=== PATIENT | male | born 1980 | race American Indian/Alaskan Native ===

== ENCOUNTER 2016-12-09 19:38 | Inpatient (IN) | payer OTHER ==
--- NOTE | 2016-12-09 20:15 | Emergency Department Report ---
HPI - General Chief Complaint: Dizziness - HPI HPI: Room 23 The patient is a 36-year-old female presenting with a chief complaint right upper extremity and right lower extremity tightness/numbness. Patient states that 30 minutes prior to arrival he began to feel dizzy and had tightness/ numbness in his right arm and right leg. The patient acknowledges that during this episode he had a brief period of being unresponsive and unaware of his surroundings. The patient states he was diagnosed by an orthopedic surgeon 45 days ago with a diagnosis of that begins with the letter "M" but he cannot remember the name. Location: Right upper extremity, right lower extremity Duration: Constant 30 minutes Quality: Tightness Severity: Moderate Modifying factors: [see above] Context: [see above] Mode of transportation: Driving ED Past Medical Hx - Past Medical History Previous Medical History?: Yes Additional medical history: muscular dystrophy - Surgical History Past Surgical History?: No - Social History Smoking Status: Never Smoker Substance Use Type: None - Medications Home Medications: Home Medications Medication Instructions Recorded Confirmed Last Taken Type No Known Home Medications [No 12/09/16 12/09/16 Unknown History Reported Home Medications] ED Review of Systems ROS: Stated complaint: RT LEG/RT ARM PAIN Other details as noted in HPI Physical Exam - Physical Exam Vital Signs: Vital Signs 12/09/16 19:44 Temperature 97.5 F L Pulse Rate 102 H Respiratory 16 Rate Blood Pressure 142/96 O2 Sat by Pulse 100 Oximetry ED Course Vital Signs 12/09/16 19:44 Temperature 97.5 F L Pulse Rate 102 H Respiratory 16 Rate Blood Pressure 142/96 O2 Sat by Pulse 100 Oximetry - Reevaluation(s) Reevaluation #1: 12/09/16 22:12 Patient has finally decided that he will stay and be admitted in the hospital - Consultations Consultation #1: 12/09/16 20:18 [facility] was called-I spoke with the on- call physician when turn spoke with the patient's orthopedic surgeon Dr. Nix acknowledges the patient was being worked up for myositis of unknown etiology secondary to elevated CPKs. The patient was reportedly referred to to local [place] truck driver however the patient never followed up ED Medical Decision Making - Lab Data Result diagrams: 12/09/16 20:07 12/09/16 20:07 Laboratory Tests 12/09/16 12/09/16 12/09/16 20:07 20:07 20:07 WBC 8.4 RBC 4.81 Hgb 14.8 Hct 44.9 MCV 93 MCH 31 MCHC 33 RDW 13.4 Plt Count 293 Lymph % (Auto) 18.0 [place] % (Auto) 6.5 Eos % (Auto) 0.4 Baso % (Auto) 0.5 Lymph # 1.5 [place] # 0.5 Eos # 0.0 Baso # 0.0 Seg Neutrophils % 74.6 H Seg Neutrophils # 6.3 PT 13.4 INR 0.97 APTT 31.0 Thrombin Time Sodium 141 Potassium 3.8 Chloride 100.3 Carbon Dioxide 26 Anion Gap 19 BUN 9 Creatinine 1.0 Estimated GFR > 60 BUN/Creatinine Ratio 9.00 Glucose 90 Calcium 9.0 Total Creatine Kinase CK-MB (CK-2) CK-MB (CK-2) Rel Index Troponin T < 0.010 12/09/16 12/09/16 20:07 20:07 WBC RBC Hgb Hct MCV MCH MCHC RDW Plt Count Lymph % (Auto) [place] % (Auto) Eos % (Auto) Baso % (Auto) Lymph # [place] # Eos # Baso # Seg Neutrophils % Seg Neutrophils # PT INR APTT Thrombin Time 17.2 Sodium Potassium Chloride Carbon Dioxide Anion Gap BUN Creatinine Estimated GFR BUN/Creatinine Ratio Glucose Calcium Total Creatine Kinase 181 H CK-MB (CK-2) 2.0 CK-MB (CK-2) Rel Index 1.1 Troponin T < 0.010 - EKG Data -: EKG Interpreted by Me EKG shows normal: sinus rhythm Rate: normal - EKG Data When compared to previous EKG there are: previous EKG unavailable Interpretation: normal EKG - Radiology Data Radiology results: report reviewed (CT head), image reviewed (CT head) CT head (read by radiologist)-normal examination - Differential Diagnosis rhabdomyolysis, polymyositis, CVA Critical care attestation.: If time is entered above; I have spent that time in minutes in the direct care of this critically ill patient, excluding procedure time. ED Disposition Clinical Impression: Numbness on right side, Episode of unresponsiveness Disposition: OP ADMIT IP TO THIS HOSP Is pt being admited?: Yes Does the pt Need Aspirin: Yes Condition: Fair Time of Disposition: 22:12 (hospitalist paged)
--- NOTE | 2016-12-09 20:29 | Cat Scan Report ---
FINAL REPORT PROCEDURE: CT HEAD/BRAIN WO CON TECHNIQUE: Computerized tomography of the head was performed without contrast material. HISTORY: neuro deficits \T\lt; 6hrs or sx present upon awakening COMPARISON: No prior studies are available for comparison. FINDINGS: Skull and scalp: Normal. Paranasal sinuses: Normal. Ventricles and subarachnoid spaces: Normal. Cerebrum: No evidence of hemorrhage, acute infarction or mass . Cerebellum and brainstem: No evidence of hemorrhage, acute infarction or mass. Vasculature: Normal. Comments: None. IMPRESSION: Normal Examination
[2016-12-09 20:46] LABS: Anion Gap 19 mmol/L; Blood Urea Nitrogen 9 mg/dL (9-20); Carbon Dioxide 26 mmol/L (22-30); Chloride 100.3 mmol/L (98-107); Glucose 90 mg/dL (75-100); Potassium 3.8 mmol/L (3.6-5.0); Sodium 141 mmol/L (137-145)
[2016-12-09 20:50] LABS: INR 0.97 (0.87-1.13)
[2016-12-09 20:51] LABS: Creatine Kinase 181 units/L (55-170)
[2016-12-09 20:52] LABS: Basophils % (Auto) 0.5 % (0.0-1.8); Eosinophils % (Auto) 0.4 % (0.0-4.3); Hematocrit 44.9 % (35.5-45.6); Hemoglobin 14.8 gm/dl (11.8-15.2); Mean Corpuscular HGB Conc 33 % (32-34); Mean Corpuscular Hemoglobin 31 pg (28-32); Mean Corpuscular Volume 93 fl (84-94); Platelet Count 293 K/mm3 (140-440); Red Blood Count 4.81 M/mm3 (3.65-5.03); Red Cell Distribution Width 13.4 % (13.2-15.2); White Blood Count 8.4 K/mm3 (4.5-11.0)
[2016-12-09] MEDS ORDERED: ASPIRIN PO ONE (21:13)
[2016-12-09] MEDS ORDERED: TYLENOL PO PRN (23:32)
[2016-12-09] MEDS ORDERED: ZOFRAN IV PRN (23:33)
[2016-12-10 01:13] LABS: Creatine Kinase MB 1.5 ng/mL (0.0-4.0)
[2016-12-10 01:14] LABS: Creatine Kinase 159 units/L (55-170)
[2016-12-10 07:12] LABS: Creatine Kinase MB 1.4 ng/mL (0.0-4.0)
[2016-12-10 07:14] LABS: Creatine Kinase 120 units/L (55-170)
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
[2016-12-10] MEDS ORDERED: HEPARIN SUB-Q SCH (10:00)
[2016-12-10] MEDS ORDERED: DELTASONE PO SCH (10:00)
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
[2016-12-10] MEDS: FLEXERIL PO SCH ×2 (12:52→13:24)
--- NOTE | 2016-12-10 12:58 | Magnetic Resonance Report ---
MRI BRAIN WITHOUT CONTRAST: 12/10/16 CLINICAL: TIA. TECHNIQUE: Axial diffusion, T1, T2, FLAIR, gradient echo T2*, and sagittal T1 sequences on a 1.5 Marlee magnet. FINDINGS: Normal ventricles and sulci. No restricted diffusion. Multifocal bilateral white matter hyperintensities on FLAIR and T2. The most prominent is in the right frontal lobe and measures 4 mm. No other abnormal signal. No mass or mass effect. No hemorrhage, edema or extra-axial collection. Normal pituitary and optic chiasm. The brainstem and cerebellum are normal. Intact vascular flow voids. Normal sinuses. The orbits, and soft tissues are normal. Normal calvarium and skull base. IMPRESSION: No evidence of acute/subacute infarct or hemorrhage. Multifocal bilateral nonspecific white matter hyperintensities on FLAIR and T2.
[2016-12-10 13:57] VITALS: BP 131/76
--- NOTE | 2016-12-10 15:12 | Consultation ---
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 and leaves no rsidual weakness Medications and Allergies Allergies Allergy/AdvReac Type Severity Reaction Status Date / Time No Known Allergies Allergy Verified 12/09/16 19:43 Home Medications Medication Instructions Recorded Confirmed Last Taken Type Cyclobenzaprine 10 mg PO TID #90 12/10/16 Unknown Rx predniSONE 10 mg PO DAILY #30 12/10/16 Unknown Rx Active Meds: Active Medications Acetaminophen (Tylenol) 650 mg PO Q4H PRN PRN Reason: For Pain/Fever/Headache Aspirin (Baby Aspirin) 81 mg PO QDAY [facility] Cyclobenzaprine HCl (Flexeril) 10 mg PO TID [facility] Last Admin: 12/10/16 13:24 Dose: Not Given Ondansetron HCl (Zofran) 4 mg IV Q8H PRN PRN Reason: Nausea And Vomiting Prednisone (Deltasone) 10 mg PO QDAY [facility] Last Admin: 12/10/16 12:53 Dose: 10 mg Simvastatin (Zocor) 20 mg PO QHS [facility] Exam - Constitutional Vitals: Temp Pulse Resp BP Pulse Ox 98.9 F 88 18 131/76 100 12/10/16 13:54 12/10/16 13:54 12/10/16 13:54 12/10/16 13:54 12/10/16 13:54 Results - Labs CBC & Chem 7: 12/09/16 20:07 12/09/16 20:07 Labs: Abnormal lab results 12/10/16 Range/Units 06:28 Triglycerides 156 H (2-149) mg/dL
[2016-12-10] MEDS ORDERED: ZOCOR PO SCH (22:00)
--- NOTE | 2016-12-11 09:58 | Consultation ---
HISTORY OF PRESENT ILLNESS: This is a 36-year-old black male, who presents to [facility] with episodes of periodic weakness of the left leg. Review of his labs do show that his are elevated at 156. He has a CPK in the range of 159, 120, and 181. Remainder laboratories including potassium and sodium are normal. He presents with a very curious history that he was having episodic sudden onset of rigidity of the right leg when he attempts to walk or even sit or even change positions. There is no predictability to the type of muscular activity he is doing, would last for minutes to hours. History is to me extremely vague and not very well constructed as to how the symptoms developed, how they progressed. I did walk the patient to see if he could show me exactly what was going on. He has no demonstrable weakness in the right leg at present time and no sensory loss and no reflex change. I reviewed his MRI scan of the brain, it is entirely normal. I do not see any evidence of any spasticity or motor neuron findings. I do not see any evidence either of Parkinson's disease or hemiparkinsonism or Andrew's chorea, which are certainly conditions that do produce similar symptoms. The fact that his CPK is normal would tend to rule out myopathy. There are conditions purely of the spinal cord. They create similar symptoms but are generally bilateral and not unilateral. [place] this could be some form of movement disorder and parkinsonism class that is so monosymptomatic that I am only seeing that as the symptom without any generalized features of Parkinson's or Andrew's. Certainly at this point it is okay for the patient to go home. I will follow up with him in the office. Obviously since there is no clear explanation of the basis of his symptoms, I will not actually provide a diagnosis as there are several things that this could possibly be. Given the fact there are no segmental signs, I do think that extensive MRI scanning of the spinal cord will be useful or warranted at this point because cervical, thoracic, and lumbar disease even of a minor nature can be responsible for this. The fact that it is unilateral argues against the fact that this is spinal cord in origin and more suggestive of GENERAL SALES MANAGER origin, but of course his MRI scan is negative. Lacking any clear diagnosis, I do think treatment is warranted at this point since I cannot attach a diagnostic label to this disorder. [facility]# [id number] JINA/LEIGH
[2016-12-11] MEDS ORDERED: BABY ASPIRIN PO SCH (10:00)
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
== END 2016-12-10 15:15 | disposition home or self-care (01) | DRG 92 ==
LOC: ED 19:38 → 3A 23:21
PROVIDERS: ADMIT Internal Medicine; ATTEND Internal Medicine
DX: G83.11 Monoplegia of lower limb affecting right dominant side (principal); G71.0 Muscular dystrophy; R20.0 Anesthesia of skin
CPT/HCPCS: 36415; 70450; 70551; 80048; 80061; 82550; 82553; 84484; 85025; 85610; 85670; 85730; 93005; 93010; 93306; J7512